=== PATIENT | female | born 1980 ===

== ENCOUNTER 2020-11-20 06:52 | Day surgery (SDC) | payer OTHER ==
[~2020-11-20 06:52] MED LIST: Lactated Ringers 1,000 ML IV SCH
[2020-11-20] MEDS ORDERED: Propofol 200 MG/20 ML SDV ONE (07:00)
[2020-11-20] MEDS ORDERED: Lidocaine 2% 5 ML SDV ONE (07:00)
[2020-11-20] MEDS ORDERED: Glycopyrrolate 0.2 MG/ML SDV ONE (07:00)
[2020-11-20] MEDS ORDERED: Ketorolac 30 MG/ML SDV ONE (07:00)
[2020-11-20] MEDS ORDERED: Midazolam 1 MG/ML 2 ML SDV ONE (07:00)
[2020-11-20] MEDS ORDERED: Ondansetron 4 MG/2 ML SDV ONE (07:00)
[2020-11-20] MEDS ORDERED: fentaNYL 100 MCG/2 ML SDV ONE (07:00)
[2020-11-20] MEDS ORDERED: Lidocaine 1% 20 ML MDV ONE (07:26)
[2020-11-20] MEDS ORDERED: Lidocaine 1% with EPINEPHrine 1:100,000 20 ML MDV ONE (07:45)
--- NOTE | 2020-11-20 08:20 | PCM.OPNOTE ---
- General Post-Op/Procedure Note Date of Surgery/Procedure: 11/20/20 Operative Procedure(s): Leep Post-Op Diagnosis: Same Anesthesia Technique: General LMA Primary Surgeon: Mannie Del Rosario EBL in mLs: 25 Complications: None Condition: Good
--- NOTE | 2020-11-20 08:21 | PCM.DCSUM1 ---
Discharge Summary - Hospital Course Diagnosis: Stroke: No - Discharge Data Discharge Date: 11/20/20 Discharge Disposition: Home, Self-Care 01 Condition: Good - Referral to Home Health Primary Care Physician: Mannie Del Rosario MD - Patient Summary/Data Operative Procedure(s) Performed: Leep - Patient Instructions Diet: Usual Diet as Tolerated Activity: As Tolerated Driving: Do Not Drive Showering/Bathing: May Shower - Discharge Plan Home Medications: Home Meds Calcium Carbonate [Tums] 1 tab.chew CHEW ASDIRECTED PRN 11/13/20 [History] Escitalopram Oxalate [Lexapro] 20 mg PO DAILY 11/13/20 [History] buPROPion HCL [Wellbutrin Xl] 150 mg PO DAILY 11/13/20 [History] norgestimate-ethinyl estradioL [Sprintec 28 Day Tablet] 1 tab PO DAILY 11/13/20 [History] - Discharge Summary/Plan Comment DC Time >30 min.: Yes - General Info Date of Service: 11/20/20 Functional Status: Reports: Pain Controlled - Review of Systems General: Reports: No Symptoms HEENT: Reports: No Symptoms Pulmonary: Reports: No Symptoms Cardiovascular: Reports: No Symptoms Gastrointestinal: Reports: No Symptoms Genitourinary: Reports: No Symptoms Musculoskeletal: Reports: No Symptoms Skin: Reports: No Symptoms Neurological: Reports: No Symptoms Psychiatric: Reports: No Symptoms - Patient Data Vitals - Most Recent: Last Vital Signs Temp 35.7 C L 11/20/20 07:00 Pulse 96 11/20/20 07:00 Resp 15 11/20/20 07:00 BP 132/84 11/20/20 07:00 Pulse Ox 100 11/20/20 07:00 Weight - Most Recent: 94.801 kg Lab Results - Last 24 hrs: Laboratory Results - last 24 hr 11/20/20 Range/Units 07:00 Urine HCG, Qual NEGATIVE (NEGATIVE) Med Orders - Current: Current Medications Lactated Ringer's (Ringers, Lactated) 1,000 mls @ 125 mls/hr IV ASDIRECTED MELINDA Last Admin: 11/20/20 07:15 Dose: 125 mls/hr Documented by: Discontinued Medications Fentanyl (Fentanyl 100 Mcg/2 Ml Sdv) Confirm Administered Dose 100 mcg .ROUTE .STK-MED ONE Stop: 11/20/20 07:01 Glycopyrrolate (Glycopyrrolate 0.2 Mg/Ml Sdv) Confirm Administered Dose 0.2 mg .ROUTE .STK-MED ONE Stop: 11/20/20 07:01 Ketorolac Tromethamine (Ketorolac 30 Mg/Ml Sdv) Confirm Administered Dose 30 mg .ROUTE .STK-MED ONE Stop: 11/20/20 07:01 Lidocaine (Lidocaine 2% 5 Ml Sdv) Confirm Administered Dose 5 ml .ROUTE .STK-MED ONE Stop: 11/20/20 07:01 Lidocaine HCl (Lidocaine 1% 20 Ml Mdv) Confirm Administered Dose 20 ml .ROUTE .STK-MED ONE Stop: 11/20/20 07:27 Lidocaine/Epinephrine (Lidocaine 1% With Epinephrine 1:100,000 20 Ml Mdv) Confir m Administered Dose 20 ml .ROUTE .STK-MED ONE Stop: 11/20/20 07:46 Midazolam HCl (Midazolam 1 Mg/Ml 2 Ml Sdv) Confirm Administered Dose 2 mg .ROUTE .STK-MED ONE Stop: 11/20/20 07:01 Ondansetron HCl (Ondansetron 4 Mg/2 Ml Sdv) Confirm Administered Dose 4 mg .ROUTE .STK-MED ONE Stop: 11/20/20 07:01 Propofol (Propofol 200 Mg/20 Ml Sdv) Confirm Administered Dose 200 mg .ROUTE .STK-MED ONE Stop: 11/20/20 07:01 - Exam General: Reports: Alert, Oriented HEENT: Reports: Pupils Equal, Pupils Reactive, EOMI, Mucous Membr. Moist/[place] Neck: Reports: Supple Lungs: Reports: Clear to Auscultation, Normal Respiratory Effort Cardiovascular: Reports: Regular Rate, Regular Rhythm GI/Abdominal Exam: Normal Bowel Sounds, Soft, Non-Tender, No Organomegaly, No Distention, No Abnormal Bruit, No Mass, Pelvis Stable (Female) Exam: Normal External Exam, Normal Speculum Exam, Normal Bimanual Exam Rectal (Female) Exam: Normal Exam, Normal Rectal Tone Back Exam: Reports: Normal Inspection, Full Range of Motion Extremities: Normal Inspection, Normal Range of Motion, Non-Tender, No Pedal Edema, Normal Capillary Refill Skin: Reports: Warm, Dry, Intact Wound/Incisions: Reports: Healing Well Neurological: Reports: No New Focal Deficit Psy/Mental Status: Reports: Alert, Normal Affect, Normal Mood
--- NOTE | 2020-11-20 08:52 | PCM.POSTAN ---
POST ANESTHESIA ASSESSMENT - MENTAL STATUS Mental Status: Alert (no anesthetic problems), Oriented - VITAL SIGNS Vital Signs: Last Vital Signs Temp 97.5 F 11/20/20 08:38 Pulse 90 11/20/20 08:33 Resp 15 11/20/20 08:38 BP 107/69 11/20/20 08:38 Pulse Ox 96 11/20/20 08:38 - RESPIRATORY Respiratory Status: Respiratory Rate WNL, Airway Patent, O2 Saturation Stable - CARDIOVASCULAR CV Status: Pulse Rate WNL, Blood Pressure Stable - GASTROINTESTINAL GI Status: No Symptoms - POST OP HYDRATION Hydration Status: Adequate & Stable
[2020-11-20 08:59] VITALS: BP 108/68; PULSE 85
--- NOTE | 2020-11-20 09:13 | PCM48HPAN ---
Post Anesthesia Note - EVALUATION WITHIN 48HRS OF ANESTHETIC Vital Signs in Normal Range: Yes Patient Participated in Evaluation: Yes Respiratory Function Stable: Yes Airway Patent: Yes Cardiovascular Function Stable: Yes Hydration Status Stable: Yes Pain Control Satisfactory: Yes Nausea and Vomiting Control Satisfactory: Yes Mental Status Recovered: Yes Vital Signs: Last Vital Signs Temp 97.5 F 11/20/20 08:38 Pulse 85 11/20/20 08:58 Resp 15 11/20/20 08:58 BP 108/68 11/20/20 08:58 Pulse Ox 97 11/20/20 08:58
--- NOTE | 2020-11-20 12:06 | OR ---
SURGEON: Mannie Del Rosario MD DATE OF PROCEDURE: 11/20/2020 PREOPERATIVE DIAGNOSIS: Atypical squamous cells of undetermined significance with high-grade virus. POSTOPERATIVE DIAGNOSIS: Atypical squamous cells of undetermined significance with high-grade virus. OPERATION PERFORMED: Loop electrosurgical excision procedure conization of the cervix. PRIMARY SURGEON: Mannie Del Rosario MD MASTER SONAR TECHNICIAN: OR tech. ANESTHESIA: LMA. ESTIMATED BLOOD LOSS: Less than 25 mL. COMPLICATIONS: None. FINDINGS: Atypical squamous cells of undetermined significance. INDICATION FOR SURGERY: [place] refer to the admit note. PROCEDURE IN DETAIL: The patient was brought to the OR. After adequate level of anesthesia, the patient was placed in lithotomy position, prepped and draped in sterile fashion as usual, and then weighted speculum placed in the vagina. The cervix was grabbed with Allis clamp on both sides at 3 and 9 o'clock and the cervix was infiltrated with 10 mL of 1% xylocaine with epi, and after that using the loop excision, the part of the cervix in a circular manner around the transformation zone was excised and removed, and sent for histopathology. Then, the raw area of the cervix was cauterized with a ball probe cautery. There was no bleeding. Once that was done, the procedure ended. The instrument and sponge count was correct. The patient tolerated the procedure well, went to recovery room in stable general condition. CLIF / JOYCE /[id number]
== END 2020-11-20 09:13 | disposition home or self-care (01) ==
LOC: MW.SDS 06:52
PROVIDERS: ATTEND Obstetrics & Gynecology
DX: D06.0 Carcinoma in situ of endocervix (principal); N72 Inflammatory disease of cervix uteri; F17.210 Nicotine dependence, cigarettes, uncomplicated; Z79.899 Other long term (current) drug therapy; Z98.890 Other specified postprocedural states
CPT/HCPCS: 57522; 81025; J1885; J2250; J2405; J2704; J3010; J3490; J7120; 00940; 88307